=== PATIENT | male | born 1940 | race Caucasian/White ===

== ENCOUNTER 2019-04-07 08:07 | Inpatient (IN) | payer MEDICARE, MEDICAID ==
[~2019-04-07] VITALS: Ht 165.1 cm; Wt 81.7 kg
[2019-04-07] MEDS ORDERED: SODIUM CHLORIDE 0.9% 1000ML BAG (SEPSIS BOLUS) IV ONE (09:00)
[2019-04-07 09:03] LABS: BASOPHILS % 0.4 % (0.0-2.0); EOSINOPHILS % 0.9 % (0.0-5.0); HEMATOCRIT. 41.5 % (42.0-52.0); HEMOGLOBIN. 14.3 g/dL (14.0-18.0); LYMPHOCYTES % 8.1 % (20.0-50.0); MEAN CORPUSCULAR HEMOGLOBIN 30.6 pg (28.0-32.0); MEAN CORPUSCULAR VOLUME 88.9 fL (80.0-94.0); MEAN PLATELET VOLUME 9.5 fl (7.4-10.4); MONOCYTES % 4.9 % (2.0-8.0); NEUTROPHILS % 85.7 % (40.0-76.0); PLATELET 103 x1000/uL (130-400); RED BLOOD CELL COUNT 4.67 mill/uL (4.7-6.1); RED CELL DISTRIBUTION WIDTH 14.2 % (11.6-14.6)
[2019-04-07 09:07] LABS: CHLORIDE 103 mEq/L (98-107)
[2019-04-07] MEDS ORDERED: LEVOFLOXACIN 750MG PREMIX 150 ML IV ONE (09:30)
[2019-04-07 09:32] LABS: CLARITY URINE CLEAR (CLEAR); COLOR URINE YELLOW (YELLOW); KETONES URINE NEGATIVE (NEGATIVE); LEUKOCYTE ESTERASE URINE NEGATIVE (NEGATIVE); NITRITE URINE NEGATIVE (NEGATIVE); OCCULT BLOOD URINE 2+ (NEGATIVE); PH URINE 5.5 (4.5-8.0); PROTEIN URINE NEGATIVE (NEGATIVE); SPECIFIC GRAVITY URINE 1.014 (1.005-1.030); UROBILINOGEN URINE 0.2 E.U./dL (0.2-1.0)
[2019-04-07 09:49] LABS: PROTHROMBIN TIME 10.6 sec (9.6-11.0)
[2019-04-07] MEDS ORDERED: ACETAMINOPHEN 325MG TABLET PO ONE (10:15)
[2019-04-07] MEDS ORDERED: NA PHOS,M-B/NA PHOS,DI-BA ENEMA 118ML PR PRN (13:30)
[2019-04-07] MEDS ORDERED: IPRATROPIUM/ALBUTEROL 0.5-3(2.5)MG/3ML NEB INH PRN (13:30)
[2019-04-07] MEDS ORDERED: DIPHENHYDRAMINE 50MG/ML VIAL IV PRN (13:30)
[2019-04-07] MEDS ORDERED: ONDANSETRON HCL 4MG/2ML INJ IV PRN (13:30)
[2019-04-07] MEDS ORDERED: DOCUSATE SODIUM 100MG CAPSULE PO PRN (13:30)
[2019-04-07] MEDS ORDERED: MAGNESIUM/ALUMINUM HYDROXIDE/SIMETHICONE 30ML UDC PO PRN (13:30)
[2019-04-07] MEDS ORDERED: LORAZEPAM 0.5MG TABLET PO PRN (13:30)
[2019-04-07] MEDS ORDERED: ACETAMINOPHEN 650MG SUPP PR PRN (13:30)
[2019-04-07] MEDS ORDERED: CLONIDINE 0.1MG TABLET PO PRN (13:30)
[2019-04-07 14:00] VITALS: BP 110/57
[2019-04-07 14:52] LABS: *AMPHETAMINES SCREEN URINE NEGATIVE (NEGATIVE); *COCAINE SCREEN URINE NEGATIVE (NEGATIVE); CANNABINOID URINE SCREEN NEGATIVE (NEGATIVE); METHADONE URINE SCREEN NEGATIVE (NEGATIVE); OPIATES URINE SCREEN NEGATIVE (NEGATIVE); PHENCYCLIDINE URINE SCREEN NEGATIVE (NEGATIVE)
[2019-04-07 14:53] LABS: *BARBITURATES SCREEN URINE NEGATIVE (NEGATIVE); *BENZODIAZEPINES SCREEN URINE NEGATIVE (NEGATIVE)
[2019-04-07 15:41] LABS: BG BASE EXCESS -5.8 mmol/L (-2.0-2.0); BG CARBOXYHEMOGLOBIN 0.3 % (0.5-1.5); BG DEOXYHEMOGLOBIN 5.4 % (0.0-5.0); BG HCO3 ACT 18.6 mmol/L (22.0-26.0); BG METHEMOGLOBIN 0.3 % (0.0-1.5); BG OXYGEN SATURATION 94.6 % (92.0-98.5); BG PCO2 33.5 mmHg (35.0-45.0); BG PH 7.363 (7.350-7.450); BG PO2 77.1 mmHg (75.0-100.0); BG SAMPLE SITE RIGHT RADIAL; BG TOTAL HEMOGLOBIN 13.6 g/dL (12.0-18.0); BG VENT MODE ROOM AIR
[2019-04-07 16:00] VITALS: BP 118/48
[2019-04-07] MEDS: IPRATROPIUM/ALBUTEROL 0.5-3(2.5)MG/3ML NEB INH SCH ×2 (16:46→20:27)
[2019-04-07] MEDS ORDERED: VANCOMYCIN 1500MG in DEXTROSE 5% WATER 250ML IV SCH (17:00)
[2019-04-07] MEDS: PIPERACILLIN/TAZ 3.375G PREMIX 50 ML IV SCH ×2 (17:24→21:26)
[2019-04-07] MEDS: FAMOTIDINE 20MG/2ML VIAL IV SCH (17:24)
[2019-04-07] MEDS: ENOXAPARIN 40MG/0.4ML SYR SUBCUT SCH (17:27)
[2019-04-07] MEDS ORDERED: ASPI-1393 MT (19:09)
[2019-04-07] MEDS ORDERED: METO-539 PO (19:09)
[2019-04-07] MEDS ORDERED: HYDR12.54 PO (19:09)
[2019-04-07] MEDS ORDERED: ATOR20TA PO (19:10)
[2019-04-07 19:48] LABS: INR 1.2; PROTHROMBIN TIME 11.9 sec (9.6-11.0)
[2019-04-07 20:00] VITALS: BP 137/65
[2019-04-07 21:00] VITALS: BP 145/70
[2019-04-07] MEDS: ASPIRIN 81MG EC TABLET PO SCH (21:51)
[2019-04-07 22:00] VITALS: BP 146/77
[2019-04-07 23:00] VITALS: BP 136/62
[2019-04-08] VITALS (15 sets, daily range): BP systolic 100–140; BP diastolic 48–108
[2019-04-08] MEDS: ACETAMINOPHEN 325MG TABLET PO PRN ×5 (00:19→21:10)
[2019-04-08] MEDS: IPRATROPIUM/ALBUTEROL 0.5-3(2.5)MG/3ML NEB INH SCH ×4 (01:56→20:02)
[2019-04-08] MEDS: PIPERACILLIN/TAZ 3.375G PREMIX 50 ML IV SCH ×4 (04:30→21:10)
[2019-04-08 07:36] LABS: CHLORIDE 103 mEq/L (98-107)
[2019-04-08 07:37] LABS: BASOPHILS % 0.2 % (0.0-2.0); HEMATOCRIT. 37.3 % (42.0-52.0); HEMOGLOBIN. 12.9 g/dL (14.0-18.0); LYMPHOCYTES % 8.2 % (20.0-50.0); MEAN CORPUSCULAR HEMOGLOBIN 30.9 pg (28.0-32.0); MEAN CORPUSCULAR VOLUME 89.6 fL (80.0-94.0); MEAN PLATELET VOLUME 8.9 fl (7.4-10.4); MONOCYTES % 3.5 % (2.0-8.0); NEUTROPHILS % 88.1 % (40.0-76.0); PLATELET 115 x1000/uL (130-400); RED BLOOD CELL COUNT 4.17 mill/uL (4.7-6.1); RED CELL DISTRIBUTION WIDTH 14.4 % (11.6-14.6)
[2019-04-08 07:49] LABS: HDL CHOLESTEROL 58 mg/dL (40-59); T4 FREE 0.99 ng/dL (0.76-1.46)
[2019-04-08 07:50] LABS: LDL CHOLESTEROL 60 mg/dL (5-100)
[2019-04-08] MEDS ORDERED: ASPIRIN 81MG EC TABLET PO SCH (09:00)
[2019-04-08] MEDS: ASPIRIN 81MG EC TABLET PO SCH (09:35)
[2019-04-08] MEDS: FAMOTIDINE 20MG/2ML VIAL IV SCH (09:37)
[2019-04-08] MEDS ORDERED: POTASSIUM CHLORIDE 20MEQ TABLET SR PO NR (11:00)
[2019-04-08] MEDS: VANCOMYCIN 1250MG in DEXTROSE 5% WATER 250ML IV SCH (11:25)
[2019-04-08] MEDS: ENOXAPARIN 40MG/0.4ML SYR SUBCUT SCH ×2 (15:00→16:13)
[2019-04-09] VITALS (12 sets, daily range): BP systolic 113–157; BP diastolic 59–89
[2019-04-09] MEDS: IPRATROPIUM/ALBUTEROL 0.5-3(2.5)MG/3ML NEB INH SCH ×2 (01:50→20:45)
[2019-04-09] MEDS: PIPERACILLIN/TAZ 3.375G PREMIX 50 ML IV SCH ×4 (04:55→21:37)
[2019-04-09] MEDS: VANCOMYCIN 1250MG in DEXTROSE 5% WATER 250ML IV SCH ×2 (06:13→18:31)
[2019-04-09] MEDS: ACETAMINOPHEN 325MG TABLET PO PRN (08:56)
[2019-04-09] MEDS: FAMOTIDINE 20MG/2ML VIAL IV SCH (08:56)
[2019-04-09] MEDS: ASPIRIN 81MG EC TABLET PO SCH (08:56)
[2019-04-09] MEDS ORDERED: POTASSIUM CHLORIDE 20MEQ TABLET SR PO SCH (12:30)
[2019-04-09 12:39] LABS: HEMATOCRIT 36.8 % (42.0-52.0); HEMOGLOBIN 12.8 g/dL (14.0-18.0); MEAN CORPUSCULAR HEMOGLOBIN 30.8 pg (28.0-32.0); MEAN CORPUSCULAR VOLUME 88.6 fL (80.0-94.0); PLATELET 120 x1000/uL (130-400); RED BLOOD CELL COUNT 4.15 mill/uL (4.7-6.1); RED CELL DISTRIBUTION WIDTH 15.2 % (11.6-14.6)
[2019-04-09] MEDS: ENOXAPARIN 40MG/0.4ML SYR SUBCUT SCH (15:12)
[2019-04-10] VITALS (12 sets, daily range): BP systolic 127–166; BP diastolic 66–95
[2019-04-10] MEDS: IPRATROPIUM/ALBUTEROL 0.5-3(2.5)MG/3ML NEB INH SCH ×4 (02:26→21:09)
[2019-04-10] MEDS: HYDROCODONE/ACETAMINOPHEN 5/325MG TABLET PO PRN ×4 (03:12→19:00)
[2019-04-10 06:19] LABS: HEMATOCRIT 35.1 % (42.0-52.0); HEMOGLOBIN 12.5 g/dL (14.0-18.0); MEAN CORPUSCULAR HEMOGLOBIN 31.1 pg (28.0-32.0); MEAN CORPUSCULAR VOLUME 87.6 fL (80.0-94.0); PLATELET 95 x1000/uL (130-400); RED CELL DISTRIBUTION WIDTH 14.7 % (11.6-14.6)
[2019-04-10] MEDS: PIPERACILLIN/TAZ 3.375G PREMIX 50 ML IV SCH ×2 (06:31→10:07)
[2019-04-10] MEDS: VANCOMYCIN 1250MG in DEXTROSE 5% WATER 250ML IV SCH (06:34)
[2019-04-10 07:16] LABS: CHLORIDE 105 mEq/L (98-107)
[2019-04-10] MEDS: ACETAMINOPHEN 325MG TABLET PO PRN ×2 (09:35→12:32)
[2019-04-10] MEDS: GUAIFENESIN 200MG/10ML SUGAR FREE UDC PO PRN (10:04)
[2019-04-10] MEDS: ASPIRIN 81MG EC TABLET PO SCH (10:05)
[2019-04-10] MEDS: FAMOTIDINE 20MG/2ML VIAL IV SCH (10:07)
[2019-04-10] MEDS: POTASSIUM CHLORIDE INJ 40 MEQ in DEXT 5% WATER 250 ML IV SCH ×2 (12:33→13:00)
[2019-04-10] MEDS: LEVOFLOXACIN 500MG TABLET PO SCH (16:27)
[2019-04-11] VITALS (8 sets, daily range): BP systolic 134–168; BP diastolic 70–91
[2019-04-11] MEDS: IPRATROPIUM/ALBUTEROL 0.5-3(2.5)MG/3ML NEB INH SCH ×2 (01:51→09:11)
[2019-04-11 05:24] LABS: HEMATOCRIT 36.8 % (42.0-52.0); HEMOGLOBIN 12.9 g/dL (14.0-18.0); MEAN CORPUSCULAR HEMOGLOBIN 31.3 pg (28.0-32.0); PLATELET 124 x1000/uL (130-400); RED BLOOD CELL COUNT 4.13 mill/uL (4.7-6.1); RED CELL DISTRIBUTION WIDTH 14.9 % (11.6-14.6)
[2019-04-11 06:24] LABS: CHLORIDE 104 mEq/L (98-107)
[2019-04-11] MEDS: FAMOTIDINE 20MG/2ML VIAL IV SCH (08:06)
[2019-04-11] MEDS: LEVOFLOXACIN 500MG TABLET PO SCH (08:06)
[2019-04-11] MEDS: ASPIRIN 81MG EC TABLET PO SCH (08:06)
[2019-04-11] MEDS: GUAIFENESIN 200MG/10ML SUGAR FREE UDC PO PRN (08:07)
== END 2019-04-11 13:05 | disposition home or self-care (01) | DRG 871 ==
LOC: ER 08:07 → EDBEDREQSVC 11:00 → EDBEDREQTM 11:00 → 5EST 11:28 → EDBEDREQ 11:32 → EDBEDREQSVC 11:32 → ENRESERV 12:06 → CANRESERV 12:06 → ENRESERV 13:21
PROVIDERS: ADMIT Internal Medicine; ATTEND Internal Medicine
DX: A40.8 Other streptococcal sepsis (principal); J18.9 Pneumonia, unspecified organism; L03.116 Cellulitis of left lower limb; J81.1 Chronic pulmonary edema; E87.2 Acidosis; R06.03 Acute respiratory distress; I10 Essential (primary) hypertension; E78.5 Hyperlipidemia, unspecified; I25.10 Atherosclerotic heart disease of native coronary artery without angina pectoris; D64.9 Anemia, unspecified; D69.6 Thrombocytopenia, unspecified; K80.20 Calculus of gallbladder without cholecystitis without obstruction; R74.0 Nonspecific elevation of levels of transaminase and lactic acid dehydrogenase [LDH]; R73.9 Hyperglycemia, unspecified; C61 Malignant neoplasm of prostate; K76.0 Fatty (change of) liver, not elsewhere classified; I27.20 Pulmonary hypertension, unspecified; E66.9 Obesity, unspecified; Z68.30 Body mass index [BMI] 30.0-30.9, adult; Z95.1 Presence of aortocoronary bypass graft
CPT/HCPCS: 36415; 36600; 71045; 73700; 74176; 76700; 80048; 80061; 80202; 80305; 82375; 82805; 83605; 84145; 84153; 84439; 84443; 84484; 85027; 87077; 87186; 93005; 93306; 93970; 94640; 96365; 96366; 97116; 97162; 99291; J1650; J1956; J2543; J3370; J3480; J3490; J7030; J7042; J7050; J7060; J7620; G0103

== ENCOUNTER 2024-07-19 08:55 | Emergency (ER) | payer MEDICARE, MEDICAID ==
[~2024-07-19] VITALS: Ht 170.2 cm; Wt 80.0 kg
[~2024-07-19 08:55] MED LIST: ASPI-1497 MT; ATOR20TA PO; ETOMIDATE 2MG/ML 10ML VIAL IV ONE; HYDR12.54 PO; METO-539 PO
[2024-07-19 09:08] VITALS: PULSE 80; RESP 20; O2SAT 100
[2024-07-19 09:24] LABS: BASOPHILS % 0.3 % (0.0-2.0); EOSINOPHILS % 2.1 % (0.0-5.0); HEMATOCRIT. 39.4 % (42.0-52.0); HEMOGLOBIN. 13.1 g/dL (14.0-18.0); LYMPHOCYTES % 37.1 % (20.0-50.0); MEAN CORPUSCULAR HGB CONC 33.3 g/dL (31.0-37.0); MEAN CORPUSCULAR VOLUME 90.2 fL (80.0-94.0); MEAN PLATELET VOLUME 8.5 fl (7.4-10.4); MONOCYTES % 6.2 % (2.0-8.0); NEUTROPHILS % 54.3 % (40.0-76.0); PLATELET 189 x1000/uL (130-400); RED BLOOD CELL COUNT 4.37 mill/uL (4.7-6.1); WHITE BLOOD COUNT 8.8 x1000/uL (4.5-11.0)
[2024-07-19 09:34] LABS: CHLORIDE 107 mEq/L (98-107); POTASSIUM 4.2 mEq/L (3.5-5.1); SODIUM 139 mEq/L (136-145)
[2024-07-19 09:35] LABS: CALCIUM 8.7 mg/dL (8.7-10.4); CARBON DIOXIDE 25 mEq/L (21-32)
[2024-07-19 09:36] LABS: PROTHROMBIN TIME 10.7 sec (9.6-11.0)
[2024-07-19 09:40] LABS: CREATININE 0.8 mg/dL (0.6-1.3); GLUCOSE 198 mg/dL (70-105); UREA NITROGEN BLOOD 20 mg/dL (9-23)
[2024-07-19 09:41] LABS: TROPONIN I HIGH SENSITIVITY 42 ng/L (3.0-53)
[2024-07-19 09:42] LABS: ALANINE AMINOTRANSFERASE 20 IU/L (10-49); ASPARTATE AMINOTRANSFERASE 29 IU/L (<34); BILIRUBIN DIRECT 0.3 mg/dL (<=3.0); BILIRUBIN TOTAL 1.3 mg/dL (0.1-1.0)
[2024-07-19 09:43] LABS: PROTEIN TOTAL 7.3 g/dL (6.0-8.3)
[2024-07-19 09:55] LABS: ETHANOL BLOOD < 10 mg/dL (<10)
[2024-07-19] MEDS: LEVETIRACETAM 1000MG PREMIX 100 ML IV ONE (10:21)
[2024-07-19] MEDS ORDERED: NIMODIPINE 30MG CAPSULE NG STA (10:55)
[2024-07-19] MEDS ORDERED: MANNITOL 20% (20GM/100ML) BAG 500ML PREMIX IV ONE (11:00)
[2024-07-19] MEDS: NICARDIPINE 50 MG in SODIUM CHLORIDE 0.9% 230 ML IV STA (11:10)
[2024-07-19] MEDS ORDERED: NICARDIPINE 50 MG in SODIUM CHLORIDE 0.9% 230 ML IV PRN (11:15)
[2024-07-19 11:18] VITALS: PULSE 57; RESP 20; O2SAT 100
[2024-07-19] MEDS ORDERED: MANNITOL 20% IV NR (11:30)
[2024-07-19] MEDS ORDERED: MANNITOL 20% 500 ML IV NR (11:30)
[2024-07-19 11:34] VITALS: O2SAT 99
[2024-07-19] MEDS: PROPOFOL 10MG/ML 100ML 100 ML IV SCH (11:34)
[2024-07-19 12:00] VITALS: BP 126/73; PULSE 60; RESP 21; TEMP 37.05852; O2SAT 100
[2024-07-19 12:56] LABS: TROPONIN I HIGH SENSITIVITY 267 ng/L (3.0-53)
== END 2024-07-19 12:02 | disposition short-term general hospital (02) ==
LOC: ER 08:55 → EDBEDREQSVC 10:58 → ER 12:02
DX: J96.00 Acute respiratory failure, unspecified whether with hypoxia or hypercapnia (principal); I60.9 Nontraumatic subarachnoid hemorrhage, unspecified; E11.9 Type 2 diabetes mellitus without complications; I25.2 Old myocardial infarction
CPT/HCPCS: 80076; 80048; 80320; 83880; 83605; 83690; 85025; 85610; 86850; 86900; 86901; 87040; 84484; 36415; 71045; 70450; 74176; 93005; 31500; 96365; 99291; J1953; J3490; J2704; J0330; 94003; J7050; G0480